=== PATIENT | female | born 1975 | race Hispanic/Latino ===

== ENCOUNTER 2023-03-28 10:11 | Day surgery (SDC) | payer BC ==
[~2023-03-28] VITALS: Ht 144.8 cm; Wt 77.1 kg
[2023-03-28 11:19] VITALS: BP 121/66
[2023-03-28] MEDS ORDERED: 0.9%NACL 1000ML 1,000 ML IV ONE (11:28)
[2023-03-28] MEDS ORDERED: LOSA25TA41 PO (11:57)
[2023-03-28] MEDS ORDERED: PROPOFOL 10 MG/ML 20ML VIAL IV ONE ×4 (12:23→13:02)
[2023-03-28] MEDS ORDERED: LIDOCAINE HCL 1% 20 ML VIAL ONE (12:24)
[2023-03-28 12:59] VITALS: BP 107/56
[2023-03-28 13:15] VITALS: BP 114/70
[2023-03-28 13:25] VITALS: BP 101/51
[2023-03-28 13:35] VITALS: BP 114/57
[2023-03-28 13:45] VITALS: BP 11/68
== END 2023-03-28 14:05 | disposition home or self-care (01) ==
LOC: DAH 10:11 → ENDO 10:11
PROVIDERS: ATTEND Internal Medicine Gastroenterology
DX: Z12.11 Encounter for screening for malignant neoplasm of colon (principal); Z20.822 Contact with and (suspected) exposure to COVID-19; R13.10 Dysphagia, unspecified; K64.0 First degree hemorrhoids; K21.00 Gastro-esophageal reflux disease with esophagitis, without bleeding; K44.9 Diaphragmatic hernia without obstruction or gangrene; K29.00 Acute gastritis without bleeding; R63.4 Abnormal weight loss; R74.01 Elevation of levels of liver transaminase levels; R14.0 Abdominal distension (gaseous); I10 Essential (primary) hypertension; Z98.890 Other specified postprocedural states; Z79.01 Long term (current) use of anticoagulants; E78.5 Hyperlipidemia, unspecified; Z86.16 Personal history of COVID-19; Z90.710 Acquired absence of both cervix and uterus; Z90.722 Acquired absence of ovaries, bilateral; Z82.49 Family history of ischemic heart disease and other diseases of the circulatory system; Z83.3 Family history of diabetes mellitus; Z87.19 Personal history of other diseases of the digestive system; Z68.37 Body mass index [BMI] 37.0-37.9, adult
CPT/HCPCS: 87635; 43239; 43248; 45378; J7030 ×2; J2704 ×4; A4620; A4215 ×2; A4223; A4657; A7002; A4222; A4221; A4663; A4606

== ENCOUNTER → 2023-08-04 | Outpatient (CLI) | payer OTHER ==
[~2023-08-04] MED LIST: LOSA25TA41 PO
== END | disposition home or self-care (01) ==
LOC: RAH 11:43
PROVIDERS: ATTEND Internal Medicine Cardiovascular Disease
DX: Z13.6 Encounter for screening for cardiovascular disorders (principal)
CPT/HCPCS: 75571